=== PATIENT | male | born 1990 ===

== ENCOUNTER 2016-10-20 12:52 | Emergency (ER) | payer OTHER ==
[2016-10-20 14:44] VITALS: BP 153/74
--- NOTE | 2016-10-20 15:06 | UC ---
Respiratory Complaint HPI - HPI Summary HPI Summary: pt c/o cough, nasal congestion sinus pressure, PND X 1 week that is worsening. - History of Current Complaint Stated Complaint: CONGESTION,COUGH Time Seen by Provider: 10/20/16 14:40 Hx Obtained From: Patient Onset/Duration: Gradual Onset, Lasting Days Timing: Constant Severity Initially: Mild Severity Currently: Mild Character: Cough: Productive - yellow Aggravating Factors: Deep Breaths, Recumbent Position Alleviating Factors: Nothing Associated Signs And Symptoms: Positive: URI, Nasal Congestion - Allergies/Home Medications Allergies/Adverse Reactions: Allergies Allergy/AdvReac Type Severity Reaction Status Date / Time No Known Allergies Allergy Verified 10/20/16 14:43 PMH/Surg Hx/FS Hx/Imm Hx Previously Healthy: Yes - Surgical History Surgical History: None - Family History Known Family History: Positive: Other - positive [facility] for URI - Social History Lives: With Family Alcohol Use: Rare Substance Use Type: None Smoking Status (MU): Never Smoked Tobacco Review of Systems Constitutional: Chills, Fatigue Skin: Negative Eyes: Negative ENT: Other - nasal congestion, sinus pressure Respiratory: Cough Cardiovascular: Negative Gastrointestinal: Negative Genitourinary: Negative Motor: Negative Neurovascular: Negative Musculoskeletal: Negative Neurological: Headache Psychological: Negative All Other Systems Reviewed And Are Negative: Yes Physical Exam Triage Information Reviewed: Yes Appearance: Ill-Appearing Vital Signs: Initial Vital Signs Temp 97.4 F 10/20/16 14:40 Pulse 92 10/20/16 14:40 Resp 16 10/20/16 14:40 BP 153/74 10/20/16 14:40 Pulse Ox 99 10/20/16 14:40 Vital Signs Reviewed: Yes Eye Exam: Normal ENT Exam: Other ENT: Positive: Nasal congestion, TM bulging, Other: - maxillary sinus tnederness Neck exam: Normal Respiratory Exam: Normal Cardiovascular Exam: Normal Musculoskeletal Exam: Normal Neurological Exam: Normal Psychological Exam: Normal Skin Exam: Normal UC Diagnostic Evaluation - Laboratory O2 Sat by Pulse Oximetry: 99 Respiratory Course/Dx - Differential Dx/Diagnosis Differential Diagnosis/HQI/PQRI: Bronchitis, Influenza, Other - viral syndrome Provider Diagnoses: viral syndrome Discharge - Discharge Plan Condition: Stable Disposition: HOME Prescriptions: Benzonatate CAP* [Tessalon CAP*] 100 mg PO TID PRN #30 cap PRN Reason: Cough Pseudoephedrine-Guaifenesin [Mucinex D 60-600 mg] 1 tab PO DAILY #10 tab predniSONE TAB* [Deltasone TAB*] 30 mg PO DAILY #9 tab Patient Education Materials: Viral Syndrome (ED) Referrals: [facility] [Outside] No Primary Care Phys,NOPCP [Medical Doctor] -
== END 2016-10-20 15:15 | disposition home or self-care (01) ==
LOC: UCCORT 12:52
DX: B34.9 Viral infection, unspecified (principal)
CPT/HCPCS: 99212; G0463

== ENCOUNTER 2018-05-29 18:20 | Emergency (ER) | payer OTHER ==
[2018-05-29 19:14] VITALS: BP 131/85
--- NOTE | 2018-05-29 20:10 | UC ---
Upper Extremity HPI - HPI Summary HPI Summary: Patient states approximately 2-1/2 weeks ago he tipped his formula. Patient states the clutch dug into his left hand. Patient is right-hand dominant. Patient states had swelling and an open wound to his left dorsum hand. Patient states the wound healed. Patient states he had some swelling at the time of injury. Patient states the swelling seemed to get better but over the last 5 days has gotten worse. Patient denies any warmth. No erythema. No drainage. Patient with mild discomfort. Patient state intermittently has some tingling across the dorsum of his wrist and proximal forearm. No hand weakness. Patient has not taken anything for pain. Patient states was concerned might be infected. Patient states his tetanus is up-to-date. Pt's medications reviewed this visit - History of Current Complaint Chief Complaint: UCUpperExtremity Stated Complaint: L HAND INJURY/ARM PAIN Time Seen by Provider: 05/29/18 19:17 Hx Obtained From: Patient Onset/Duration: Gradual Onset Severity Initially: Mild Severity Currently: Mild Pain Intensity: 0 Character: Aching Aggravating Factor(s): Movement - Allergies/Home Medications Allergies/Adverse Reactions: Allergies Allergy/AdvReac Type Severity Reaction Status Date / Time No Known Allergies Allergy Verified 05/29/18 19:14 Home Medications: Home Medications NK [No Home Medications Reported] 05/29/18 [History Confirmed 05/29/18] PMH/Surg Hx/FS Hx/Imm Hx Previously Healthy: Yes - Surgical History Surgical History: None - Family History Known Family History: Positive: Other - positive [facility] for URI - Social History Occupation: Employed Full-time Alcohol Use: Occasionally Substance Use Type: None Smoking Status (MU): Never Smoked Tobacco Review of Systems Musculoskeletal: Other: - left hand All Other Systems Reviewed And Are Negative: Yes Physical Exam - Summary Physical Exam Summary: Vital Signs Reviewed: Yes A+Ox3, no distress Eyes: Conjunctiva Clear ENT: Hearing grossly normal neck: supple Respiratory: Positive: No respiratory distress, No accessory muscle use Cardiovascular: skin color reflect adequate perfusion Musculoskeletal Exam: + flex/ext elbow, wrist + pronate/supinate mild TTP base 3rd/4th finger Pt with likely hematoma along 4th MT. Pt with healed puncture base 4th no crepitus no warmth, no erythema mild discomfort Neurological: Positive: Alert, ambulatory without difficulty + thumb up, a ok, finger cross, finger spread 5/5 grasp Psychological: Positive: Normal Response To Skin: Positive: no rash, no ecchymosis see MS Triage Information Reviewed: Yes Vital Signs: Initial Vital Signs Temp 99.1 F 05/29/18 19:08 Pulse 72 05/29/18 19:08 Resp 17 05/29/18 19:08 BP 131/85 05/29/18 19:08 Pulse Ox 100 05/29/18 19:08 Diagnostics - Radiology No standard instances Radiology Interpretation Completed By: ED Physician - no acute fx Re-Evaluation - Re-Evaluation First Eval Comment: Reviewed imaging with patient. No acute fracture noted. Patient aware will be reread by radiologist tomorrow. Will call if any change. We'll patient's blood. Elevate. Motrin Tylenol. Patient given contact information for orthopedics. Return precautions discussed. Patient comfortable and in agreement with plan. Upper Extremity Course/Dx - Course Course Of Treatment: Patient presents with discomfort to his left dorsum of his hand. Patient had an injury approximately 3 weeks ago with a puncture wound. This is since healed. Patient states he had some swelling in this area that had improved. Patient states however over the last 4-5 days it has gotten worse. Patient denies numbness or tingling of his hand but states he has some paresthesias to his wrist and dorsum of his forearm. Patient states pain is worse with movement. No warmth no erythema no red streaking. No fevers or chills. Patient is not immunocompromised and tetanus is up-to-date. On exam patient was a likely hematoma. No concern for infection. No fluctuance. We' ll check imaging for fracture. Likely splint. Motrin Tylenol. Return precautions. Patient comfortable in agreement with plan. Patient - Differential Dx/Diagnosis Provider Diagnoses: left hand contusion Discharge - Sign-Out/Discharge Documenting (check all that apply): Patient Departure All imaging exams completed and their final reports reviewed: No - Discharge Plan Condition: Stable Disposition: HOME Patient Education Materials: Contusion in Adults (ED), Hematoma (ED) Referrals: MICHAEL Mchugh [Primary Care Provider] - Additional Instructions: - wear splint for comfort and support - okay to alternate ibuprofen (advil, motrin) and tylenol every 3 hours for pain. Take with food. do NOT take for more than 4-5 days for pain - If you develop fever, reddness, red streaking, swelling, or increased pain or numbness you should contact the orthopedic provider or go to the emergency department - your xrays were reviewed by the physician in the urgent care tonight. they will be read by a radiologist tomorrow. If the radiologist interprets your imaging differently, you will receive a call from a care steam powerplant supervisor - Billing Disposition and Condition Condition: STABLE Disposition: Home
--- NOTE | 2018-05-30 07:51 | RAD ---
HISTORY: pain dorsum left hand - hematoma COMPARISONS: None VIEWS: 4 , Frontal, lateral, and oblique views of the left hand FINDINGS: BONE DENSITY: Normal. BONES: There is no displaced fracture. JOINTS: There is no arthropathy. ALIGNMENT: There is no dislocation. SOFT TISSUES: Unremarkable. OTHER FINDINGS: None. IMPRESSION: NO ACUTE OSSEOUS INJURY. IF SYMPTOMS PERSIST, RECOMMEND REPEAT IMAGING. R0
--- NOTE | 2018-05-30 12:43 | UC ---
Re-Evaluation - Re-Evaluation First Eval Comment: Reviewed imaging with patient. No acute fracture noted. Patient aware will be reread by radiologist tomorrow. Will call if any change. We'll patient's blood. Elevate. Motrin Tylenol. Patient given contact information for orthopedics. Return precautions discussed. Patient comfortable and in agreement with plan. Discharge - Sign-Out/Discharge Documenting (check all that apply): Post-Discharge Follow Up All imaging exams completed and their final reports reviewed: Yes - Discharge Plan Condition: Stable Disposition: HOME Patient Education Materials: Contusion in Adults (ED), Hematoma (ED) Referrals: MICHAEL Mchugh [Primary Care Provider] - Additional Instructions: - wear splint for comfort and support - okay to alternate ibuprofen (advil, motrin) and tylenol every 3 hours for pain. Take with food. do NOT take for more than 4-5 days for pain - If you develop fever, reddness, red streaking, swelling, or increased pain or numbness you should contact the orthopedic provider or go to the emergency department - your xrays were reviewed by the physician in the urgent care tonight. they will be read by a radiologist tomorrow. If the radiologist interprets your imaging differently, you will receive a call from a care team facilitator - Billing Disposition and Condition Condition: STABLE Disposition: Home
== END 2018-05-29 20:29 | disposition home or self-care (01) ==
LOC: UCCORT 18:20
DX: S60.222A Contusion of left hand, initial encounter (principal); W22.8XXA Striking against or struck by other objects, initial encounter; Y93.9 Activity, unspecified; Y92.9 Unspecified place or not applicable
CPT/HCPCS: 99212; G0463

== ENCOUNTER 2018-11-03 10:29 | Emergency (ER) | payer OTHER ==
[2018-11-03 10:39] VITALS: BP 148/94
[2018-11-03 10:56] LABS: Influenza A Molecular POSITIVE (Negative)
--- NOTE | 2018-11-03 11:10 | UC ---
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 -no wheezing. appetite is ok. -no PMHx of asthma, DM, kidney disease or other chronic medical problems. - History of Current Complaint Chief Complaint: UCGeneralIllness Stated Complaint: FEVER,COUGH,ST,SINUS COMPLAINT Time Seen by Provider: 11/03/18 11:04 Pain Intensity: 0 - Allergies/Home Medications Allergies/Adverse Reactions: Allergies Allergy/AdvReac Type Severity Reaction Status Date / Time No Known Allergies Allergy Verified 05/29/18 19:14 Home Medications: Home Medications Ibuprofen TAB* [Advil TAB*] 800 mg PO Q8H PRN 11/03/18 [History Confirmed ] PMH/Surg Hx/FS Hx/Imm Hx Previously Healthy: Yes - Surgical History Surgical History: None - Family History Known Family History: Positive: Other - positive [facility] for URI - Social History Alcohol Use: Occasionally Substance Use Type: None Smoking Status (MU): Never Smoked Tobacco Review of Systems All Other Systems Reviewed And Are Negative: Yes Constitutional: Positive: Negative, Chills, Fatigue Skin: Positive: Negative Eyes: Positive: Negative ENT: Positive: Negative, Sore Throat, Ear Ache Respiratory: Positive: Cough Cardiovascular: Positive: Negative Gastrointestinal: Positive: Negative Genitourinary: Positive: Negative Motor: Positive: Negative Neurovascular: Positive: Negative Musculoskeletal: Positive: Arthralgia Neurological: Positive: Negative Psychological: Positive: Negative Is Patient Immunocompromised?: No Physical Exam Triage Information Reviewed: Yes Appearance: Well-Nourished, Ill-Appearing - mild Vital Signs: Initial Vital Signs Temp 98.9 F 11/03/18 10:36 Pulse 93 11/03/18 10:36 Resp 18 11/03/18 10:36 BP 148/94 11/03/18 10:36 Pulse Ox 100 11/03/18 10:36 Vital Signs Reviewed: Yes Eye Exam: Normal ENT: Positive: Pharyngeal erythema, Nasal congestion, Nasal drainage, TMs normal , Uvula midline. Negative: Tonsillar swelling, Tonsillar exudate, Sinus tenderness Neck exam: Normal Neck: Positive: Supple, Nontender, No Lymphadenopathy Respiratory Exam: Normal Respiratory: Positive: Chest non-tender, Lungs clear, Normal breath sounds, No respiratory distress, No accessory muscle use. Negative: Crackles, Rhonchi, Stridor, Wheezing Cardiovascular Exam: Normal Cardiovascular: Positive: RRR, Brisk Capillary Refill Abdomen Description: Positive: Nontender, Soft Musculoskeletal Exam: Normal Neurological Exam: Normal Psychological Exam: Normal Skin Exam: Normal UC Diagnostic Evaluation - Laboratory O2 Sat by Pulse Oximetry: 100 Respiratory Course/Dx - Course Course Of Treatment: BP likely elevated d/t current illness and taking ibuprofen. + Flu A. -recommend flu shot when acute illness resolves - Differential Dx/Diagnosis Differential Diagnosis/HQI/PQRI: Bronchitis, Influenza, Sinusitis Provider Diagnosis: Influenza A Discharge - Sign-Out/Discharge Documenting (check all that apply): Patient Departure All imaging exams completed and their final reports reviewed: No Studies - Discharge Plan Condition: Stable Disposition: HOME Patient Education Materials: Influenza (ED) Referrals: MICHAEL Mchugh [Primary Care Provider] - 2 Weeks Additional Instructions: -Drinke plenty of fluids and get lots of rest. Ibuprofen will be helpful for fever and body aches. You should be seen in the ER if your symptoms worsen, cough worsens, you develop shortness of breath. - Billing Disposition and Condition Condition: STABLE Disposition: Home
== END 2018-11-03 11:33 | disposition home or self-care (01) ==
LOC: UCCORT 10:29
DX: J10.1 Influenza due to other identified influenza virus with other respiratory manifestations (principal)
CPT/HCPCS: 99211; G0463